=== PATIENT | male | born 1960 | race Caucasian/White ===

== ENCOUNTER → 2016-05-12 | Outpatient (CLI) | payer MEDICARE, MEDICAID ==
[~2016-05-12] VITALS: Ht 30.5 cm; Wt 0.5 kg
[~2016-05-12] MED LIST: LIDOCAINE 1% HCL (LOCAL ANESTH.) INJ 20ML MDV ID ONE; METF-312 PO; METO25TA5 PO; OMEP20CA5 PO; SIMV-8 PO; SODIUM CHLOR 0.9% PF (SALINE LOCK) 10ML VIAL IV SCH
== END | disposition home or self-care (01) ==
LOC: XYW 13:02
PROVIDERS: ATTEND Podiatrist Foot & Ankle Surgery
DX: J98.11 Atelectasis (principal)
CPT/HCPCS: 36569; 71010; C1751; J7050

== ENCOUNTER 2021-07-11 13:25 | Inpatient (IN) | payer MEDICAID, MEDICARE ==
[~2021-07-11] VITALS: Ht 200.7 cm; Wt 146.0 kg
[~2021-07-11 13:25] MED LIST changes: -LIDOCAINE 1% HCL (LOCAL ANESTH.) INJ 20ML MDV ID ONE; -METF-312 PO; +METF-370 PO; -OMEP20CA5 PO; +OMEP20CA74 PO; -SODIUM CHLOR 0.9% PF (SALINE LOCK) 10ML VIAL IV SCH
[2021-07-11 15:31] LABS: Basophils # (auto) 0 10 ^3/uL (0-0.2); Basophils % (auto) 0.3 % (0.0-2.0); Eosinophils # (auto) 0.1 10 ^3/uL (0-0.8); Eosinophils % (auto) 1.8 % (0.0-7.0); Hematocrit 41.7 % (41.0-53.0); Hemoglobin 14.2 g/dL (13.5-17.5); Lymphocytes # (auto) 1.5 10 ^3/uL (0.4-5.4); Lymphocytes % (auto) 19.4 % (10.0-50.0); Mean Corpuscular Hemoglobin 31.1 pg (28.0-32.0); Mean Corpuscular Hgb Conc. 34.1 g/dL (32.0-36.0); Monocytes # (auto) 0.7 10 ^3/uL (0-1.3); Neutrophils # (auto) 5.3 10 ^3/uL (1.6-8.6); Neutrophils % (auto) 69.5 % (37.0-80.0); Red Blood Cells 4.58 10^6/uL (4.5-5.90); Red Cell Distribution Width 13.9 % (11.8-14.3); White Blood Cell 7.6 10^3/uL (4.4-10.8)
[2021-07-11 15:47] LABS: Albumin 3.8 g/dL (3.4-5.0); Calcium 9.1 mg/dL (8.5-10.1); Potassium 4.1 mmol/L (3.5-5.1)
[2021-07-11 15:52] LABS: BUN/Creatinine Ratio 12.3; Bilirubin, Total 0.5 mg/dL (0.2-1.0); Total Protein 7.4 g/dL (6.4-8.2)
[2021-07-11] MEDS ORDERED: cefTRIAXone 1GM/50ML D5W 50 ML IV ONE (16:30)
[2021-07-11] MEDS ORDERED: CLINDAMYCIN 900MG IV 50 ML IV ONE (16:30)
[2021-07-11] MEDS ORDERED: NITROGLYCERIN 0.4 MG SL TAB SL PRN (17:15)
[2021-07-11] MEDS ORDERED: MORPHINE SULFATE INJECTION 2 MG/ML SYRG IV PRN (17:15)
[2021-07-12 00:14] LABS: Magnesium 2.5 mg/dL (1.6-2.6); Phosphorus 3.7 mg/dL (2.5-4.90)
[2021-07-12] MEDS ORDERED: MULTIPLE VITAMINS W/ MINERALS TAB PO ONE (00:45)
[2021-07-12] MEDS ORDERED: HYDROcodone-ACET 5/325MG TAB PO ONE (00:45)
[2021-07-12] MEDS ORDERED: HYDROcodone-ACET 5/325MG TAB PO PRN (00:45)
[2021-07-12] MEDS ORDERED: MORPHINE SULFATE INJECTION 2 MG/ML SYRG IV PRN (00:45)
[2021-07-12] MEDS ORDERED: PIPERACILLIN-TAZO 4.5GM 100 ML IV ONE (00:45)
[2021-07-12] MEDS ORDERED: ACETAMINOPHEN 325 MG TAB PO PRN (00:45)
[2021-07-12] MEDS ORDERED: IPRATROPIUM BROM 0.5 MG/2.5ML INH SOL NEB ONE (00:45)
[2021-07-12] MEDS ORDERED: LACTULOSE 20Gm/30ML SOLN PO PRN (00:45)
[2021-07-12] MEDS ORDERED: VANCOMYCIN PER PHARMACY 0 MG IV SCH (00:45)
[2021-07-12] MEDS ORDERED: DEXTROSE (50%) 50ML SYRG IV PRN (00:45)
[2021-07-12] MEDS ORDERED: PANTOPRAZOLE 40 MG/10 ML VIAL INJ IV ONE (00:45)
[2021-07-12] MEDS ORDERED: BENAZEPRIL HCL 10 MG TAB PO ONE (00:45)
[2021-07-12] MEDS ORDERED: SUCRALFATE 1 GM/10 ML ORAL SUSP PO ONE (00:45)
[2021-07-12] MEDS ORDERED: LORazepam 0.5 MG TAB PO PRN (00:45)
[2021-07-12] MEDS ORDERED: FOLIC ACID 1 MG TAB PO ONE (00:45)
[2021-07-12] MEDS ORDERED: DOCUSATE SOD 100 MG CAP PO PRN (00:45)
[2021-07-12] MEDS ORDERED: VANCOMYCIN 1GM/250ML 250 ML IV ONE (01:00)
[2021-07-12 01:56] LABS: INR 1.06 (0.9-1.15); Partial Thromboplastin Time 31.6 sec (23.6-33.0)
[2021-07-12] MEDS ORDERED: IPRATROPIUM BROM 0.5 MG/2.5ML INH SOL NEB SCH (02:00)
[2021-07-12 02:15] VITALS: BP 112/79
[2021-07-12] MEDS: SODIUM CHLORIDE 0.9% 1,000 ML IV SCH ×2 (02:18→17:12)
[2021-07-12 05:00] VITALS: BP 116/66
[2021-07-12] MEDS: GABAPENTIN 300 MG CAP PO SCH ×3 (05:54→21:51)
[2021-07-12] MEDS: InsuLIN REG 1unit/0.01ml Soln (100units/ml) SC SCH ×4 (05:59→21:53)
[2021-07-12] MEDS ORDERED: PIPERACILLIN-TAZOB 3.375GM 100 ML IV SCH (06:00)
[2021-07-12] MEDS: ACCU-CHEK COMFORT CURVE STRIP VI SCH ×4 (06:01→21:51)
[2021-07-12 06:37] LABS: Potassium 3.9 mmol/L (3.5-5.1)
[2021-07-12 06:42] LABS: INR 1.05 (0.9-1.15); Partial Thromboplastin Time 31.9 sec (23.6-33.0)
[2021-07-12] MEDS ORDERED: SUCRALFATE 1 GM/10 ML ORAL SUSP PO SCH (07:00)
[2021-07-12 07:02] LABS: Albumin 3.2 g/dL (3.4-5.0); BUN/Creatinine Ratio 13.9; Bilirubin, Total 0.8 mg/dL (0.2-1.0); CRP High Sensitivity 9.44 mg/dL (< 0.3); Calcium 8.5 mg/dL (8.5-10.1); Magnesium 2.2 mg/dL (1.6-2.6); Phosphorus 3.6 mg/dL (2.5-4.90); Total Protein 6.5 g/dL (6.4-8.2); Uric Acid 7.1 mg/dL (3.5-7.2)
[2021-07-12 09:50] VITALS: BP 123/71
[2021-07-12] MEDS: ASPirin 81 mg TAB PO SCH (10:00)
[2021-07-12] MEDS ORDERED: PANTOPRAZOLE 40 MG/10 ML VIAL INJ IV SCH (10:00)
[2021-07-12] MEDS ORDERED: ENOXAPARIN SOD 40 MG/0.4 ML SYRINGE SC SCH (10:00)
[2021-07-12] MEDS: THIAMINE HCL 100 MG TAB PO SCH (10:00)
[2021-07-12] MEDS: BENAZEPRIL HCL 10 MG TAB PO SCH (10:00)
[2021-07-12] MEDS: VANCOMYCIN 1GM/250ML 250 ML IV SCH ×2 (10:00→17:12)
[2021-07-12] MEDS: CYANOCOBALAMIN 500 MCG TAB PO SCH (10:00)
[2021-07-12] MEDS: MULTIPLE VITAMINS W/ MINERALS TAB PO SCH (10:00)
[2021-07-12] MEDS: FOLIC ACID 1 MG TAB PO SCH (10:00)
[2021-07-12] MEDS: CHOLECALCIFEROL (VITD3) 2,000 UNIT CAP/TAB PO SCH (10:00)
[2021-07-12 10:58] LABS: Basophils # (auto) 0 10 ^3/uL (0-0.2); Basophils % (auto) 0.5 % (0.0-2.0); Eosinophils # (auto) 0.2 10 ^3/uL (0-0.8); Eosinophils % (auto) 2.8 % (0.0-7.0); Hemoglobin 12.8 g/dL (13.5-17.5); Lymphocytes # (auto) 1.7 10 ^3/uL (0.4-5.4); Lymphocytes % (auto) 27.1 % (10.0-50.0); Mean Corpuscular Hemoglobin 30.6 pg (28.0-32.0); Mean Corpuscular Hgb Conc. 33.6 g/dL (32.0-36.0); Mean Corpuscular Volume 91.1 fL (80.0-100.0); Monocytes # (auto) 0.7 10 ^3/uL (0-1.3); Monocytes % (auto) 11.7 % (0.0-12.0); Neutrophils # (auto) 3.6 10 ^3/uL (1.6-8.6); Neutrophils % (auto) 57.9 % (37.0-80.0); Nucleated Red Blood Cells % 0.1 %; Red Blood Cells 4.17 10^6/uL (4.5-5.90); Red Cell Distribution Width 14.3 % (11.8-14.3); White Blood Cell 6.3 10^3/uL (4.4-10.8)
[2021-07-12] MEDS: cefTRIAXone 1GM/50ML D5W 50 ML IV SCH (12:00)
[2021-07-12 12:49] VITALS: BP 130/77
[2021-07-12] MEDS ORDERED: cefTRIAXone 1GM/50ML D5W 50 ML IV ONE (13:33)
[2021-07-12 16:31] VITALS: BP 119/78
[2021-07-12] MEDS ORDERED: MORPHINE SULFATE 4 MG/ML SYR/VIAL ONE (18:43)
[2021-07-12] MEDS: ATORVASTATIN 20 MG TAB PO SCH (21:51)
[2021-07-12 22:00] VITALS: BP 134/80
[2021-07-12 22:33] LABS: Urine Bacteria NONE SEEN /hpf (None Seen); Urine Blood Negative /uL (Negative); Urine WBC <1 /hpf (0 - 3)
[2021-07-12 22:50] LABS: Alcohol, Urine < 3.0 mg/dL (0-10); Amphetamine Screen, Urine NEGATIVE (NEGATIVE); Barbiturate Scree,Urine NEGATIVE (NEGATIVE); Benzodiazephine Screen, Urine NEGATIVE (NEGATIVE); Cannabinoid Screen, Urine NEGATIVE (NEGATIVE); Cocaine Screen, Urine NEGATIVE (NEGATIVE); Opiate Scree,Urine POSITIVE (NEGATIVE)
[2021-07-12 23:04] LABS: Phencyclidine Screen, Urine NEGATIVE (NEGATIVE)
[2021-07-13] MEDS: VANCOMYCIN 1GM/250ML 250 ML IV SCH ×5 (01:52→20:41)
[2021-07-13 05:00] VITALS: BP 127/80
[2021-07-13 05:53] LABS: Basophils # (auto) 0 10 ^3/uL (0-0.2); Basophils % (auto) 0.6 % (0.0-2.0); Eosinophils # (auto) 0.3 10 ^3/uL (0-0.8); Eosinophils % (auto) 5.3 % (0.0-7.0); Hematocrit 37.2 % (41.0-53.0); Hemoglobin 12.8 g/dL (13.5-17.5); Lymphocytes # (auto) 1.5 10 ^3/uL (0.4-5.4); Lymphocytes % (auto) 28.7 % (10.0-50.0); Mean Corpuscular Hgb Conc. 34.4 g/dL (32.0-36.0); Mean Corpuscular Volume 90.3 fL (80.0-100.0); Monocytes # (auto) 0.6 10 ^3/uL (0-1.3); Monocytes % (auto) 12.1 % (0.0-12.0); Neutrophils # (auto) 2.7 10 ^3/uL (1.6-8.6); Neutrophils % (auto) 53.3 % (37.0-80.0); Red Blood Cells 4.12 10^6/uL (4.5-5.90); Red Cell Distribution Width 13.9 % (11.8-14.3); White Blood Cell 5.1 10^3/uL (4.4-10.8)
[2021-07-13 06:07] LABS: Potassium 4.3 mmol/L (3.5-5.1)
[2021-07-13 06:17] LABS: Albumin 3.4 g/dL (3.4-5.0); BUN/Creatinine Ratio 12.4; Bilirubin, Total 0.3 mg/dL (0.2-1.0); Calcium 8.4 mg/dL (8.5-10.1); Total Protein 6.8 g/dL (6.4-8.2)
[2021-07-13] MEDS: GABAPENTIN 300 MG CAP PO SCH ×3 (06:25→20:41)
[2021-07-13] MEDS: InsuLIN REG 1unit/0.01ml Soln (100units/ml) SC SCH ×4 (06:31→22:15)
[2021-07-13] MEDS: ACCU-CHEK COMFORT CURVE STRIP VI SCH ×4 (06:32→22:15)
[2021-07-13] MEDS ORDERED: ceFAZolin 1GM/50ML 100 ML IV ONE (08:14)
[2021-07-13 08:49] VITALS: BP 129/84
[2021-07-13] MEDS: cefTRIAXone 1GM/50ML D5W 50 ML IV SCH (09:00)
[2021-07-13] MEDS ORDERED: ROPIVACAINE 0.5% (5MG/ML) 20ML AMPULE IJ ONE (09:08)
[2021-07-13] MEDS ORDERED: ceFAZolin 1GM VL ONE (09:08)
[2021-07-13] MEDS ORDERED: fentaNYL CITRATE 100 MCG/2 ML VL ONE (09:21)
[2021-07-13] MEDS ORDERED: MIDAZOLAM HCL 2MG/2ML 2ml VIAL (1mg/ml) ONE (09:21)
[2021-07-13] MEDS ORDERED: MEPERIDINE HCL (25 MG/ML) 1ML VIAL ONE (09:21)
[2021-07-13] MEDS ORDERED: DexAMETHasone SOD PHOS 10MG/1ML VIAL INJ ONE (09:36)
[2021-07-13] MEDS ORDERED: PROPOFOL 10 MG/ML 20 ML IV ONE (09:54)
[2021-07-13] MEDS ORDERED: METOCLOPRAMIDE HCL 5MG/ml INJ 2ml VIAL ONE (09:59)
[2021-07-13] MEDS: BENAZEPRIL HCL 10 MG TAB PO SCH (10:00)
[2021-07-13] MEDS: FOLIC ACID 1 MG TAB PO SCH (10:00)
[2021-07-13] MEDS: MULTIPLE VITAMINS W/ MINERALS TAB PO SCH (10:00)
[2021-07-13] MEDS: CYANOCOBALAMIN 500 MCG TAB PO SCH (10:00)
[2021-07-13] MEDS: THIAMINE HCL 100 MG TAB PO SCH (10:00)
[2021-07-13] MEDS: CHOLECALCIFEROL (VITD3) 2,000 UNIT CAP/TAB PO SCH (10:00)
[2021-07-13] MEDS: ASPirin 81 mg TAB PO SCH (10:00)
[2021-07-13] MEDS: SODIUM CHLORIDE 0.9% 1,000 ML IV SCH (10:05)
[2021-07-13] MEDS ORDERED: KETOROLAC TROMETH 30 MG/ML 1ML VIAL IV ONE (10:30)
[2021-07-13] MEDS ORDERED: MORPHINE SULFATE 4 MG/ML SYR/VIAL IV PRN (10:30)
[2021-07-13] MEDS ORDERED: ACCU-CHEK COMFORT CURVE STRIP VI ONE (10:30)
[2021-07-13] MEDS ORDERED: ONDANSETRON HCL 4 MG/2 ML VIAL IV PRN (10:30)
[2021-07-13] MEDS ORDERED: HYDROmorphone HCL 2 MG/ML VL IV PRN (10:30)
[2021-07-13] MEDS ORDERED: LABETALOL HCL 5 MG/ML 4ML SYRINGE IV PRN (10:30)
[2021-07-13] MEDS ORDERED: ePHEDrine SULFATE 50 MG/ML AMP IV PRN (10:30)
[2021-07-13 13:00] VITALS: BP 125/59
[2021-07-13] MEDS ORDERED: LIDOCAINE 1% (LOCAL ANESTH.) PF 5ml SDV ID ONE (14:00)
[2021-07-13 16:01] VITALS: BP 130/74
[2021-07-13] MEDS: ATORVASTATIN 20 MG TAB PO SCH (20:41)
[2021-07-13 22:00] VITALS: BP 123/73
[2021-07-13] MEDS: SODIUM CHLOR 0.9% PF (SALINE LOCK) 10ML VIAL/SYR IV SCH (22:15)
[2021-07-14] MEDS: SODIUM CHLORIDE 0.9% 1,000 ML IV SCH (02:49)
[2021-07-14] MEDS: VANCOMYCIN 1GM/250ML 250 ML IV SCH ×2 (04:01→12:00)
[2021-07-14 05:00] VITALS: BP 126/75
[2021-07-14] MEDS: GABAPENTIN 300 MG CAP PO SCH ×2 (06:03→14:00)
[2021-07-14] MEDS: ACCU-CHEK COMFORT CURVE STRIP VI SCH ×2 (06:07→11:30)
[2021-07-14] MEDS: InsuLIN REG 1unit/0.01ml Soln (100units/ml) SC SCH ×2 (06:22→11:30)
[2021-07-14 07:05] LABS: Basophils # (auto) 0 10 ^3/uL (0-0.2); Basophils % (auto) 0.2 % (0.0-2.0); Eosinophils # (auto) 0 10 ^3/uL (0-0.8); Eosinophils % (auto) 0.1 % (0.0-7.0); Hematocrit 34.5 % (41.0-53.0); Hemoglobin 12.1 g/dL (13.5-17.5); Lymphocytes # (auto) 1.4 10 ^3/uL (0.4-5.4); Lymphocytes % (auto) 14.2 % (10.0-50.0); Mean Corpuscular Hemoglobin 31.5 pg (28.0-32.0); Mean Corpuscular Hgb Conc. 35.2 g/dL (32.0-36.0); Mean Corpuscular Volume 89.3 fL (80.0-100.0); Monocytes # (auto) 0.7 10 ^3/uL (0-1.3); Monocytes % (auto) 7.5 % (0.0-12.0); Neutrophils # (auto) 7.7 10 ^3/uL (1.6-8.6); Red Blood Cells 3.86 10^6/uL (4.5-5.90); Red Cell Distribution Width 13.7 % (11.8-14.3); White Blood Cell 9.9 10^3/uL (4.4-10.8)
[2021-07-14 07:46] LABS: BUN/Creatinine Ratio 13.6; Calcium 8.8 mg/dL (8.5-10.1)
[2021-07-14] MEDS: cefTRIAXone 1GM/50ML D5W 50 ML IV SCH (09:00)
[2021-07-14 09:24] VITALS: BP 135/69
[2021-07-14] MEDS: BENAZEPRIL HCL 10 MG TAB PO SCH (09:54)
[2021-07-14] MEDS: CHOLECALCIFEROL (VITD3) 2,000 UNIT CAP/TAB PO SCH (09:55)
[2021-07-14] MEDS: ASPirin 81 mg TAB PO SCH (09:55)
[2021-07-14] MEDS: MULTIPLE VITAMINS W/ MINERALS TAB PO SCH (09:56)
[2021-07-14] MEDS: FOLIC ACID 1 MG TAB PO SCH (09:57)
[2021-07-14] MEDS: SODIUM CHLOR 0.9% PF (SALINE LOCK) 10ML VIAL/SYR IV SCH (09:57)
[2021-07-14] MEDS: CYANOCOBALAMIN 500 MCG TAB PO SCH (09:57)
[2021-07-14] MEDS: THIAMINE HCL 100 MG TAB PO SCH (09:57)
[2021-07-14 13:16] VITALS: BP 134/86
[2021-07-14 13:23] VITALS: BP 130/76
== END 2021-07-14 16:58 | disposition home health service (06) | DRG 617 ==
LOC: ER 13:25 → OVERFLOW 17:12 → CENTRAL 23:45
PROVIDERS: ADMIT Hospitalist; ATTEND Internal Medicine
PROC: 02HV33Z Insertion of Infusion Device into Superior Vena Cava, Percutaneous Approach (ICD-10-PCS; 2021-07-13)
PROC: B548ZZA Ultrasonography of Superior Vena Cava, Guidance (ICD-10-PCS; 2021-07-13)
PROC: 0Y6R0Z0 Detachment at Right 2nd Toe, Complete, Open Approach (ICD-10-PCS; principal; 2021-07-13 09:32)
PROC: 0QBN0ZZ Excision of Right Metatarsal, Open Approach (ICD-10-PCS; 2021-07-13 09:32)
DX: E11.69 Type 2 diabetes mellitus with other specified complication (principal); M86.171 Other acute osteomyelitis, right ankle and foot; L03.115 Cellulitis of right lower limb; L02.611 Cutaneous abscess of right foot; I16.9 Hypertensive crisis, unspecified; M87.877 Other osteonecrosis, right toe(s); E11.621 Type 2 diabetes mellitus with foot ulcer; N17.9 Acute kidney failure, unspecified; M19.071 Primary osteoarthritis, right ankle and foot; E66.01 Morbid (severe) obesity due to excess calories; N18.2 Chronic kidney disease, stage 2 (mild); L97.519 Non-pressure chronic ulcer of other part of right foot with unspecified severity; E11.22 Type 2 diabetes mellitus with diabetic chronic kidney disease; E78.5 Hyperlipidemia, unspecified; I12.9 Hypertensive chronic kidney disease with stage 1 through stage 4 chronic kidney disease, or unspecified chronic kidney disease; Z79.899 Other long term (current) drug therapy; Z68.33 Body mass index [BMI] 33.0-33.9, adult; Z88.2 Allergy status to sulfonamides; Z88.8 Allergy status to other drugs, medicaments and biological substances
CPT/HCPCS: 36415; 36569; 71045; 73700; 80048; 80053; 80061; 80202; 80307; 81001; 82550; 82728; 82962; 83036; 83605; 83615; 83690; 83735; 83880; 84100; 84443; 84484; 84550; 85025; 85379; 85610; 85652; 85730; 86141; 86850; 86900; 86901; 87040; 87070; 87075; 87077; 87086; 87186; 87205; 93925; 96365; 96367; C9113; G0378; J0690; J0696; J1100; J1815; J2250; J2543; J2704; J3490

== ENCOUNTER → 2022-11-16 | Outpatient (CLI) | payer MEDICARE ==
[~2022-11-16] MED LIST changes: -SIMV-8 PO; +SIMV20TA20 PO
== END | disposition home or self-care (01) ==
LOC: Rad HDHVI 12:52
PROVIDERS: ATTEND Internal Medicine Cardiovascular Disease
DX: I08.3 Combined rheumatic disorders of mitral, aortic and tricuspid valves (principal); I11.9 Hypertensive heart disease without heart failure; E78.5 Hyperlipidemia, unspecified
CPT/HCPCS: 93306

== ENCOUNTER → 2022-11-29 | Outpatient (CLI) | payer MEDICARE ==
[~2022-11-29] VITALS: Ht 200.7 cm; Wt 136.1 kg
[~2022-11-29] MED LIST changes: +ADENOSINE 114 MG in GIVE UN-DILUTED 0 ML IV ONE; +ADENOSINE 90 MG/30 ML INJ IV ONE
== END | disposition home or self-care (01) ==
LOC: Rad HDHVI 14:35
PROVIDERS: ATTEND Internal Medicine Cardiovascular Disease
DX: I11.0 Hypertensive heart disease with heart failure (principal); I50.43 Acute on chronic combined systolic (congestive) and diastolic (congestive) heart failure; R06.02 Shortness of breath; I20.9 Angina pectoris, unspecified; E78.00 Pure hypercholesterolemia, unspecified
CPT/HCPCS: 78452; 93005; 96374; 96375; A9500; J0153

== ENCOUNTER → 2022-12-06 | Outpatient (CLI) | payer MEDICARE ==
[~2022-12-06] MED LIST changes: -ADENOSINE 114 MG in GIVE UN-DILUTED 0 ML IV ONE; -ADENOSINE 90 MG/30 ML INJ IV ONE
== END | disposition home or self-care (01) ==
LOC: Rad HDHVI 14:12
PROVIDERS: ATTEND Internal Medicine Cardiovascular Disease
DX: I10 Essential (primary) hypertension (principal); E78.5 Hyperlipidemia, unspecified
CPT/HCPCS: 93880

== ENCOUNTER → 2022-12-27 | Outpatient (CLI) | payer MEDICARE ==
[~2022-12-27] MED LIST changes: +CLOP75TA28 PO; +EMPA1TAB3 PO; -METF-370 PO; +METO-6 PO; -METO25TA5 PO; -OMEP20CA74 PO; -SIMV20TA20 PO; +VALS40TA2 PO
[2022-12-27 10:15] VITALS: BP 124/67; PULSE 66; RESP 16; O2SAT 94
[2022-12-27 10:32] VITALS: BP 122/72; PULSE 64; RESP 16; O2SAT 94
== END | disposition home or self-care (01) ==
LOC: Rad HDHVI 10:05
PROVIDERS: ATTEND Internal Medicine Cardiovascular Disease
DX: Z01.818 Encounter for other preprocedural examination (principal); I45.10 Unspecified right bundle-branch block; R94.31 Abnormal electrocardiogram [ECG] [EKG]; I50.43 Acute on chronic combined systolic (congestive) and diastolic (congestive) heart failure; I25.5 Ischemic cardiomyopathy
CPT/HCPCS: 71046; 93005; G0463

== ENCOUNTER 2022-12-28 09:27 | Day surgery (SDC) | payer MEDICARE ==
[2022-12-27 11:46] LABS: Partial Thromboplastin Time 30.1 SEC (24.5-34.5); Prothrombin Time 10.5 sec (9.3-11.8)
[2022-12-27 13:13] LABS: Chloride 107 mmol/L (98-107); Potassium 4.5 mmol/L (3.5-5.1); Sodium 140 mmol/L (136-145)
[2022-12-27 13:14] LABS: Anion Gap 7.7 (5-15); Carbon Dioxide 25.3 mmol/L (20-30)
[2022-12-27 13:15] LABS: Calcium 9.6 mg/dL (8.5-10.1)
[2022-12-27 13:20] LABS: BUN/Creatinine Ratio 8.6 (10.0-20.0); Blood Urea Nitrogen 10 mg/dL (9-23); Glucose 194 mg/dL (74-106)
[2022-12-28] VITALS (7 sets, daily range): BP systolic 119–141; BP diastolic 68–85; PULSE 51–62; RESP 11–17; TEMP 98.1; O2SAT 92–96
[~2022-12-28] VITALS: Ht 200.7 cm; Wt 135.6 kg
[2022-12-28 09:22] LABS: Basophils # (auto) 0 10 ^3/uL (0-0.2); Basophils % (auto) 0.7 % (0.0-2.0); Eosinophils # (auto) 0.2 10 ^3/uL (0-0.8); Hemoglobin 14.7 g/dL (13.5-17.5); Lymphocytes # (auto) 2.5 10 ^3/uL (0.4-5.4); Neutrophils # (auto) 2.7 10 ^3/uL (1.6-8.6); White Blood Cell 5.9 10^3/uL (4.4-10.8)
[2022-12-28 11:39] LABS: Eosinophils % (auto) 3.1 % (0.0-7.0); Hematocrit 42.9 % (41.0-53.0); Lymphocytes % (auto) 42.1 % (10.0-50.0); Mean Corpuscular Hgb Conc. 34.3 g/dL (32.0-36.0); Mean Corpuscular Volume 90.5 fL (80.0-100.0); Monocytes # (auto) 0.4 10 ^3/uL (0-1.3); Monocytes % (auto) 7.4 % (0.0-12.0); Neutrophils % (auto) 46.7 % (37.0-80.0); Nucleated Red Blood Cells % 0.2 %; Red Blood Cells 4.74 10^6/uL (4.5-5.90); Red Cell Distribution Width 13.8 % (11.8-14.3)
[2022-12-28] MEDS ORDERED: ANGIOMAX 250 MG VIAL IV ONE (12:21)
[2022-12-28] MEDS ORDERED: MIDAZOLAM HCL 2MG/2ML 2ml VIAL (1mg/ml) ONE (12:22)
[2022-12-28] MEDS ORDERED: fentaNYL CITRATE 100 MCG/2 ML VL ONE (12:22)
[2022-12-28] MEDS ORDERED: LIDOCAINE 2%HCL (LOCAL ANESTH.) INJ 20ML MDV ONE (12:22)
[2022-12-28] MEDS ORDERED: IOHEXOL 350 MG/ML 100ML IJ ONE (12:22)
[2022-12-28] MEDS ORDERED: SODIUM CHL 0.9% 0 ML ONE (12:22)
== END 2022-12-28 15:05 | disposition home or self-care (01) ==
LOC: CATH 09:27
PROVIDERS: ATTEND Internal Medicine Cardiovascular Disease
DX: R94.39 Abnormal result of other cardiovascular function study (principal); R06.02 Shortness of breath; I42.0 Dilated cardiomyopathy; I42.8 Other cardiomyopathies; I11.0 Hypertensive heart disease with heart failure; I50.9 Heart failure, unspecified; E66.01 Morbid (severe) obesity due to excess calories
CPT/HCPCS: 36415; 80048; 85025; 85610; 85730; 93458; C1894; J1644; J2250; J3010; J7040; Q9967; 99152

== ENCOUNTER → 2023-04-25 | Outpatient (CLI) | payer MEDICARE ==
[~2023-04-25] MED LIST changes: +TRIA37.587 PO
[2023-04-25 10:04] VITALS: BP 149/80; PULSE 72; RESP 18; O2SAT 95
[2023-04-25 10:25] VITALS: BP 159/80; PULSE 69; RESP 18; O2SAT 95
== END | disposition home or self-care (01) ==
LOC: CHF HDHVI 10:00
PROVIDERS: ATTEND Internal Medicine Cardiovascular Disease
DX: Z01.818 Encounter for other preprocedural examination (principal); I45.10 Unspecified right bundle-branch block; R94.31 Abnormal electrocardiogram [ECG] [EKG]; I11.0 Hypertensive heart disease with heart failure; I50.43 Acute on chronic combined systolic (congestive) and diastolic (congestive) heart failure; R06.02 Shortness of breath; I42.0 Dilated cardiomyopathy
CPT/HCPCS: 36415; 80048; 85025; 85610; 85730; 93005; G0463

== ENCOUNTER 2023-04-26 07:11 | Day surgery (SDC) | payer MEDICARE ==
[2023-04-25 11:28] LABS: Basophils # (auto) 0 10 ^3/uL (0-0.2); Basophils % (auto) 0.5 % (0.0-2.0); Eosinophils # (auto) 0.2 10 ^3/uL (0-0.8); Eosinophils % (auto) 3.8 % (0.0-7.0); Hematocrit 42.9 % (41.0-53.0); Hemoglobin 14.6 g/dL (13.5-17.5); Lymphocytes # (auto) 1.9 10 ^3/uL (0.4-5.4); Lymphocytes % (auto) 32.9 % (10.0-50.0); Mean Corpuscular Hemoglobin 30.6 pg (28.0-32.0); Mean Corpuscular Hgb Conc. 33.9 g/dL (32.0-36.0); Mean Corpuscular Volume 90.1 fL (80.0-100.0); Monocytes # (auto) 0.4 10 ^3/uL (0-1.3); Monocytes % (auto) 6.8 % (0.0-12.0); Neutrophils # (auto) 3.2 10 ^3/uL (1.6-8.6); Nucleated Red Blood Cells % 0.1 %; Red Blood Cells 4.76 10^6/uL (4.5-5.90); Red Cell Distribution Width 13.2 % (11.8-14.3); White Blood Cell 5.7 10^3/uL (4.4-10.8)
[2023-04-25 11:36] LABS: Partial Thromboplastin Time 29.6 SEC (24.5-34.5); Prothrombin Time 10.5 sec (9.3-11.8)
[2023-04-25 11:53] LABS: Anion Gap 9 (5-15); Carbon Dioxide 27 mmol/L (20-30); Chloride 102 mmol/L (98-107); Potassium 4.4 mmol/L (3.5-5.1); Sodium 138 mmol/L (136-145)
[2023-04-25 11:55] LABS: Calcium 9.8 mg/dL (8.5-10.1)
[2023-04-25 11:59] LABS: BUN/Creatinine Ratio 9.3 (10.0-20.0); Blood Urea Nitrogen 10 mg/dL (9-23); Glucose 177 mg/dL (74-106)
[~2023-04-26] VITALS: Ht 200.7 cm; Wt 139.7 kg
[2023-04-26] MEDS ORDERED: VANCOMYCIN HCL 1000 MG VL ONE (10:05)
[2023-04-26] MEDS ORDERED: LIDOCAINE 2%HCL (LOCAL ANESTH.) INJ 20ML MDV ONE (10:06)
[2023-04-26] MEDS ORDERED: VANCOMYCIN 1GM/200ML 200 ML IV ONE (10:06)
[2023-04-26] MEDS ORDERED: MIDAZOLAM HCL 2MG/2ML 2ml VIAL (1mg/ml) ONE ×2 (10:07→11:30)
[2023-04-26] MEDS ORDERED: fentaNYL CITRATE 100 MCG/2 ML VL ONE (10:07)
[2023-04-26] MEDS ORDERED: IOHEXOL 350 MG/ML 100ML IJ ONE (10:07)
[2023-04-26] MEDS ORDERED: METOPROLOL TARTRATE 1MG/1ML-5ML VIAL IV ONE ×2 (11:21→11:28)
[2023-04-26] MEDS ORDERED: HYDROmorphone HCL 2 MG/ML VL/or syr ONE (11:29)
[2023-04-26 11:50] VITALS: BP 145/86; PULSE 70; RESP 12; O2SAT 90
[2023-04-26 12:04] VITALS: BP 137/86; PULSE 71; RESP 12; O2SAT 90
[2023-04-26 12:20] VITALS: BP 137/86; PULSE 71; RESP 12; O2SAT 90
[2023-04-26 12:34] VITALS: BP 123/86; PULSE 70; RESP 12; O2SAT 90
[2023-04-26 12:50] VITALS: BP 132/88; PULSE 70; RESP 12; O2SAT 90
== END 2023-04-26 13:20 | disposition home or self-care (01) ==
LOC: CATH 07:11
PROVIDERS: ATTEND Internal Medicine Cardiovascular Disease
DX: R00.1 Bradycardia, unspecified (principal); I50.21 Acute systolic (congestive) heart failure; I42.8 Other cardiomyopathies; I50.22 Chronic systolic (congestive) heart failure; I48.91 Unspecified atrial fibrillation; Z79.01 Long term (current) use of anticoagulants; Z79.899 Other long term (current) drug therapy
CPT/HCPCS: 33249; 71045; 92960; 93005; C1769; C1882; C1894; C1895; C1898; J1170; J2250; J3010; J3370; J7030; Q9967; 36415; 80048; 85025; 85610; 85730; 99152

== ENCOUNTER → 2023-10-11 | Outpatient (CLI) | payer MEDICARE | END | disposition home or self-care (01) | LOC: Rad HDHVI 14:41 | PROVIDERS: ATTEND Internal Medicine Cardiovascular Disease | DX: I35.1 Nonrheumatic aortic (valve) insufficiency (principal); I77.810 Thoracic aortic ectasia; I11.9 Hypertensive heart disease without heart failure | CPT/HCPCS: 93306 ==

== ENCOUNTER → 2024-03-12 | Outpatient (CLI) | payer MEDICARE ==
[~2024-03-12] MED LIST changes: +IOHEXOL 350 MG/ML 100ML IJ ONE
[2024-03-12 09:00] VITALS: BP 143/85; PULSE 69; RESP 18
[2024-03-12 09:31] VITALS: BP 156/69; PULSE 89; RESP 16; O2SAT 94
--- NOTE | 2024-03-12 10:08 | DVH ---
CLINICAL INFORMATION: 63 years old, Male; NECK PAIN. TECHNIQUE: Axial CT images of the neck soft tissues were obtained after the uneventful administration of 100 mL Omnipaque 300 IV contrast. Coronal and sagittal reformatted images were obtained, stored, and reviewed. One or more of the following dose reduction techniques were used: Automated exposure co ntrol. Adjustment of mA and/or kV according to patient size. CTDIvol = 18.58 mGy DLP = 558.33 mGy-cm COMPARISON: None FINDINGS: Nasopharynx: Torus tubarius and fossa of Rosenmuller are unremarkable. No mass or fluid collection. U nremarkable adenoid tonsils. Oropharynx: No evidence of mass or abscess. Unremarkable palatine tonsils and lingual tonsils. Hypopharynx/Larynx: There is gaseous distention of the pyriform sinuses with a small portion of the r ight pyriform sinus extending beyond the thyrohyoid membrane into the adjacent neck soft tissues and measuring up to 2.2 cm in greatest dimension (series 2 image 72 correlating with series 301 image 48) , consistent with a pharyngocele. Paranasal sinuses: Clear. Lymph nodes: No lymphadenopathy. Neck glands: Small subcentimeter nodule in the right thyroid lobe. Parotid glands and submandibular g lands are unremarkable. Vasculature: Unremarkable. Bones: Severe disc space narrowing in the cervical spine at the C5-C6 and C6-C7 levels with associate d endplate sclerosis and endplate spurring. Moderate disc space narrowing at C3-C4 and C4-C5. Multile wyatt facet and uncinate hypertrophy with moderate left neural foraminal stenoses at C5-C6 and C6-C7. N o evidence of acute fracture. No suspicious intraosseous lesions visualized. Visualized superior mediastinum: Unremarkable. Lung apices: Unremarkable. Other findings: None. IMPRESSION: 1. Right pharyngocele as described above. 2. Subcentimeter nodule in the right thyroid lobe. No additional imaging is needed for this nodule ba sed on size per ACR white paper on incidentally detected thyroid nodules, unless clinically indicated . 3. Degenerative disc disease and facet / uncinate disease in the cervical spine as described above.
== END | disposition home or self-care (01) ==
LOC: Rad HDHVI 08:47
PROVIDERS: ATTEND Internal Medicine Cardiovascular Disease
DX: E04.2 Nontoxic multinodular goiter (principal); M50.30 Other cervical disc degeneration, unspecified cervical region; M47.812 Spondylosis without myelopathy or radiculopathy, cervical region; M48.02 Spinal stenosis, cervical region
CPT/HCPCS: 70491; G0463; Q9967

== ENCOUNTER → 2024-04-11 | Outpatient (CLI) | payer MEDICARE ==
[~2024-04-11] MED LIST changes: -IOHEXOL 350 MG/ML 100ML IJ ONE
[2024-04-11 10:39] VITALS: BP 143/72; PULSE 81; RESP 18; O2SAT 98
[2024-04-11] MEDS: cefTRIAXone 1GM/50ML D5W 50 ML IV ONE ×2 (10:39→10:54)
[2024-04-11] MEDS: VANCOMYCIN 1GM/250ML KIT 250 ML IV ONE ×2 (10:54→13:05)
[2024-04-11 12:16] VITALS: BP 150/80; PULSE 71; RESP 16; O2SAT 98
== END | disposition home or self-care (01) ==
LOC: CHF HDHVI 10:33
PROVIDERS: ATTEND Internal Medicine Cardiovascular Disease
DX: R78.81 Bacteremia (principal)
CPT/HCPCS: 96365; 96367; G0463; J0696; J3370; 96366; 96368

== ENCOUNTER → 2024-08-19 | Outpatient (CLI) | payer MEDICARE | END | disposition home or self-care (01) | LOC: Rad HDHVI 08:57 | PROVIDERS: ATTEND Internal Medicine Cardiovascular Disease | DX: I51.7 Cardiomegaly (principal); R07.89 Other chest pain | CPT/HCPCS: 93306 ==

== ENCOUNTER → 2025-04-16 | Outpatient (CLI) | payer MEDICARE ==
[2025-04-16 13:29] LABS: Hematocrit 41.3 % (41.0-53.0); Hemoglobin 14.5 g/dL (13.5-17.5); Mean Corpuscular Hemoglobin 31.4 pg (28.0-32.0); Mean Corpuscular Volume 89.7 fL (80.0-100.0); Nucleated Red Blood Cells % 0.1 %
[2025-04-16 13:42] LABS: Albumin 4.6 g/dL (3.2-4.8); Alkaline Phosphatase 82 U/L (46-116); Anion Gap 12 (5-15); BUN/Creatinine Ratio 13.2 (10.0-20.0); Blood Urea Nitrogen 16 mg/dL (9-23); Calcium 9.6 mg/dL (8.7-10.4); Carbon Dioxide 24 mmol/L (20-31); Chloride 106 mmol/L (98-107); Potassium 4.1 mmol/L (3.5-5.1); Sodium 142 mmol/L (136-145); Total Protein 7.3 g/dL (5.7-8.2)
[2025-04-16 13:43] LABS: Bilirubin, Total 0.7 mg/dL (0.2-1.0); Cholesterol 173 mg/dL (< 200)
[2025-04-16 13:46] LABS: Alanine Aminotransferase 43 U/L (7-40); Glucose 181 mg/dL (74-106); HDL Cholesterol 33 mg/dL (40-59); Triglycerides 297 mg/dL (< 150)
[2025-04-17 11:37] LABS: Microalb/Creat Ratio, Urine 93.0
== END | disposition home or self-care (01) ==
LOC: LAB 12:47
PROVIDERS: ATTEND Nurse Practitioner Family
DX: E11.9 Type 2 diabetes mellitus without complications (principal); E29.1 Testicular hypofunction; R35.1 Nocturia; Z00.01 Encounter for general adult medical examination with abnormal findings
CPT/HCPCS: 36415; 80053; 80061; 82043; 82570; 83036; 84153; 84403; 84443; 85025